=== PATIENT | male | born 2000 | race Caucasian/White ===

== ENCOUNTER 2021-06-17 17:51 | Emergency (ER) | payer OTHER ==
[~2021-06-17 17:51] MED LIST: GUANFACINE HCL2 MG PO; OXCARBAZEPINE600 MG PO; SEROQUEL100 MG PO; SILVADENE20 GM TP; ZOLOFT100 MG PO
[2021-06-17] MEDS ORDERED: CEPHALEXIN500 M1 PO (20:20)
[2021-06-17] MEDS ORDERED: BACTROBAN OINT22 GM EXT (20:20)
== END 2021-06-17 20:38 | disposition home or self-care (01) ==
LOC: ER1 17:51
DX: S61.223A Laceration with foreign body of left middle finger without damage to nail, initial encounter (principal); Z23 Encounter for immunization; W26.8XXA Contact with other sharp object(s), not elsewhere classified, initial encounter
CPT/HCPCS: 12002; 73130; 90471; 90715; 96372; 99283; J0690